=== PATIENT | female | born 1960 | race Caucasian/White ===

== ENCOUNTER 2018-05-16 05:55 | Inpatient (IN) | payer OTHER ==
--- NOTE | 2018-05-14 01:17 | PREOPHP ---
DATE OF ADMISSION: 05/16/2018 HISTORY OF PRESENT ILLNESS: This is a 57-year-old female 2, para 2 with 2 spontaneous vagina l deliveries. Patient with a last period in 2009 and history of pelvic pain and pelvic pressure. Th e patient loses urine with Valsalva maneuver. She loses urine during sex and she wears a pad on a da keiko basis due to loss of continence every time she does any Valsalva maneuver. She has no urinary pa in. She has normal bowel movement with constipation. Family history is for colon cancer. The patie nt had history of a hemorrhoidectomy in 2004. She had spinal headaches after she agreed to do some e xperimental studies. The patient has a strong family history of colon cancer. REVIEW OF SYSTEMS: Otherwise, she has no problems with her heart. No lung disease, no GI disease, n o endocrine disease. No neurological disease, orthopedic disease. SOCIAL HISTORY: The patient does not drink or smoke and no history of drugs. FAMILY HISTORY: Heart attacks and colon cancer. PHYSICAL EXAMINATION: GENERAL APPEARANCE: Good. VITAL SIGNS: The blood pressure is 140/70, pulse 80, respirations 16. She is 5'1". She weighs 126. HEAD AND NECK: Normal. BREASTS: Soft, nontender, no masses. CHEST: Clear. HEART: Normal sinus rhythm. LUNGS: Clear. ABDOMEN: Soft, nontender, no masses. GENITALIA: With cystourethrocele, grade III-IV, prolapse, grade III of the rectum, cervical oblitera tion and a prolapse of the uterus, grade III. There is vaginal atrophy as well. The uterus is yeyo l size. DIAGNOSES: 1. Complete uterovaginal prolapse. 2. Mixed incontinence. 3. Constipation. 4. Borderline hypertension. 5. Family history of colon cancer. 6. Cervical obliteration. PLAN: She has been advised of a vaginal total hysterectomy with anterior and posterior colporrhaphy with a sling and a graft. She has been placed on estrogen vaginal cream due to the vaginal atrophy. She has been advised of the possible risks and possible complications of the procedure with her alte rnatives and options. Written information was provided. She had no more questions and agreed to go ahead with the procedure with full understanding and no more questions. Instructions and advice were given about placing a sling versus not placing a sling. She knows the recurrence rate with the slin g is less frequent and she would like to take the risk of the sling having other possible complicatio ns of frequent infections or protrusion to other organs. She would rather take that chance versus suellen dominguez to have the procedure recur again. She understood everything. She had all her questions answer ed and she agreed to go ahead with the procedure with full understanding and no more questions. Dictated By: MARSHA VELÁSQUEZ/JULIO CESAR Conf#: [id number] DID#: [id number]
[~2018-05-16] VITALS: Ht 154.9 cm; Wt 56.7 kg
[2018-05-16] VITALS (28 sets, daily range): BP systolic 82–120; BP diastolic 43–67; PULSE 53–98; RESP 10–39; Ht 154.9 cm; Wt 56.7 kg
[~2018-05-16 05:55] MED LIST: HEMOSTATIC MATRIX SYG ZFS ONE; THROMBIN 5000 UNIT VIAL TOP ONE
[2018-05-16] MEDS ORDERED: CEFAZOLIN 1 GM INJ ONE (07:00)
[2018-05-16] MEDS ORDERED: DESFLURANE 15 MIN ONE (07:00)
[2018-05-16] MEDS ORDERED: BUPIVACAINE 0.5%/EPI (SDV) 30 ML INJ ONE ×2 (07:07→09:22)
[2018-05-16] MEDS ORDERED: BUPIVACAINE 0.25% (MPF) 30 ML INJ ONE (07:07)
[2018-05-16] MEDS ORDERED: THROMBIN (BOVINE) 5,000 UNIT VIAL TP ONE (07:08)
[2018-05-16] MEDS ORDERED: POLYMYXIN/BACITRACIN 1L IRRIG ONE (07:08)
[2018-05-16] MEDS ORDERED: ONDANSETRON 4 MG INJ IV PRN ×2 (07:30→12:00)
[2018-05-16] MEDS ORDERED: HYDROmorphONE 1 MG/5 ML IV SYRINGE IV PRN ×6 (07:30→12:00)
[2018-05-16] MEDS ORDERED: MEPERIDINE 25 MG INJ IV PRN ×2 (07:30→12:00)
[2018-05-16] MEDS ORDERED: hydrALAzine 20 MG INJ IV PRN ×2 (07:30→12:00)
[2018-05-16] MEDS ORDERED: LABETALOL HCL 20MG INJ IV PRN ×2 (07:30→12:00)
[2018-05-16] MEDS ORDERED: DIPHENHYDRAMINE 50 MG INJ IV PRN ×2 (07:30→12:00)
--- NOTE | 2018-05-16 07:30 | PREAC ---
Date/Time of Note Date/Time of Note DATE: 05/16/18 TIME: 07:28 Anesthesia Eval and Record Evaluation Time Pre-Procedure Interview DATE: 05/16/18 TIME: 07:28 Age 57 Sex female NPO: 8 hrs Preoperative diagnosis complete uterovaginal prolapse Planned procedure vaginal hysterectomy Past Medical History Past Medical History: None Surgery & Anesthesia Issues No known issue Meds Anticoagulation: No Beta Adiel within 24 hr: No Reason Beta Adiel not given: Pt. not on B-Adiel No Active Prescriptions or Reported Meds Meds reviewed: Yes Allergies Coded Allergies: No Known Allergy (Unverified , 05/16/18) Allergies Reviewed: Yes Labs/Studies Labs Reviewed: Reviewed by anesthesiologist test: N/A Studies: ECG (sr), CXR (nl) Pre-procedure Exam Last vitals Vital Signs Date Temp Pulse Resp B/P (MAP) Pulse Ox O2 O2 Flow FiO2 Time Delivery Rate 05/16/18 98.0 72 18 112/43 96 Room Air 06:42 (66) Airway: Adequate mouth opening Mallampati: Mallampati I Teeth: Normal Lung: Normal Heart: Normal ASA Physical Status ASA physical status: 1 Emergency: None Planned Anesthetic General/MAC: LMA Neuraxial: Spinal Planned Pain Management Sub-arachniod narcotics Pre-operative Attestations Prior to commencing anesthesia and surgery, the patient was re-evaluated, there was verification of: *The patient's identity *The results of appropriate recent lab work and preoperative vital signs *The above evaluation not changing prior to induction *Anesthetic plan, risk benefits, alternative and complications discussed with patient/family; questions answered; patient/family understands, accepts and wishes to proceed. VICKY MIMS MD May 16, 2018 07:30
--- NOTE | 2018-05-16 07:43 | HPN ---
Date/Time of Note Date/Time of Note DATE: 05/16/18 TIME: 07:43 Interval H&P Admission Note Pt. seen H&P reviewed: No system changes MARSHA SANTILLAN MD May 16, 2018 07:43
[2018-05-16] MEDS ORDERED: PROPOFOL 20 ML ONE (07:44)
[2018-05-16] MEDS ORDERED: MIDAZOLAM 1 MG/ML 2 ML INJ ONE (07:45)
[2018-05-16] MEDS ORDERED: FENTAnyl 50 MCG/ML VIAL ONE (07:45)
[2018-05-16] MEDS ORDERED: METOCLOPRAMIDE 10 MG INJ ONE ×2 (07:45→11:50)
[2018-05-16] MEDS ORDERED: morphine SULFATE/PF (10 MG/10 ML) INJ ONE (07:45)
[2018-05-16] MEDS ORDERED: ONDANSETRON 4 MG INJ ONE ×2 (07:45→11:27)
[2018-05-16] MEDS ORDERED: DEXAMETHASONE 4 MG/ML 5 ML INJ ONE (08:17)
[2018-05-16] MEDS ORDERED: EPHEDrine 25 MG/5 ML SYG ONE (08:22)
[2018-05-16] MEDS ORDERED: THROMBIN 5000 UNIT VIAL TOP ONE (08:47)
--- NOTE | 2018-05-16 11:29 | SIPON ---
Date/Time of Note Date/Time of Note DATE: 05/16/18 TIME: 11:22 Operative Report Preoperative Diagnosis Complete uterovaginal prolapse with urinary stress incontinence Mixed incontinence Constipation Cystourethrocele grade 4 and borderline hypertension rectocele grade 4 Pelvic pain Postoperative Diagnosis Same Operation/Procedure Performed Vaginal total hysterectomy and bilateral salpingectomy Anterior and posterior colporrhaphy OBtryx sling, Acell graft and Xenform graft Surgeon see signature line medical lab assistant Dr Martinez Anesthesia: general Estimated blood loss: 100 - 150 ml's Transfusion Required none Specimen Uterus cervix bilateral tubes and vaginal mucosa Grafts/Implants none Complications none MARSHA SANTILLAN MD May 16, 2018 11:29
[2018-05-16] MEDS ORDERED: ZOLPIDEM 5 MG TAB PO PRN (11:30)
[2018-05-16] MEDS ORDERED: ONDANSETRON INJ 6 MG in DEXTROSE 5% 50 ML IVPB PRN (11:30)
[2018-05-16] MEDS ORDERED: DIPHENHYDRAMINE 50 MG CAP PO PRN (11:30)
[2018-05-16] MEDS ORDERED: HYDROCODONE/APAP (5/325) TAB PO PRN ×2 (11:30)
[2018-05-16] MEDS: METOCLOPRAMIDE 10 MG TAB PO SCH ×3 (12:00→23:47)
[2018-05-16] MEDS: KETOROLAC 30 MG INJ IV SCH ×3 (12:06→23:48)
[2018-05-16] MEDS: LACTATED RINGER'S 1,000 ML IV SCH ×2 (12:23→21:38)
[2018-05-16] MEDS ORDERED: METOCLOPRAMIDE 10 MG INJ IV ONE (12:30)
--- NOTE | 2018-05-16 13:09 | OPR ---
DATE OF OPERATION: PREOPERATIVE DIAGNOSES: 1. Complete uterovaginal prolapse. 2. Urinary stress mixed incontinence. 3. Constipation. 4. Cystourethrocele, rectocele grade 4. 5. Borderline hypertension. 6. Pelvic pain. POSTOPERATIVE DIAGNOSES: 1. Complete uterovaginal prolapse. 2. Urinary stress mixed incontinence. 3. Constipation. 4. Cystourethrocele, rectocele grade 4. 5. Borderline hypertension. 6. Pelvic pain. SURGEON: Marsha Tena MD NURSE INTERN: Earnest Martinez MD ANESTHESIOLOGIST: Estephania Randolph MD ANESTHESIA: General anesthesia and Duramorph. COMPLICATIONS: None. OPERATIONS PERFORMED: Vaginal total hysterectomy, bilateral salpingectomy, anterior and posterior co lporrhaphy, Obtryx sling, ACell graft and Xenform graft. DESCRIPTION OF PROCEDURE: The patient was given Duramorph and general anesthesia, placed in the supi ne position in lithotomy position. The perineal and vaginal area was prepped and draped. Confirmato ry examination under anesthesia revealed that the cervix was at the introitus with the bladder and th e rectum with a complete uterovaginal prolapse. Vaginal speculum was applied. The cervix was held a nd Marcaine solution with epinephrine 0.5% was given around the cervix and cervicovaginal junction in cision was made around the whole cervix. The anterior cul-de-sac was found then the posterior cul-de -sac was found. The cardinal ligaments and uterosacral ligaments were burned and cut with the LigDataCoupu re instrument levels. The uterine vessels were also burned and cut with the LigaSure instrumen t and the uterus was inverted and with 1 clamp, the adnexal pedicle was cut and on each side and the uterus was removed. The adnexal pedicles were tied with #1 Vicryl continuous suture into the Pham clamp and these sutures were held and hemostasis was good. At this time, the posterior vaginal mucos a started bleeding slightly, so we put interrupted sutures all around the bottom half of the vaginal rim. The cardinal ligaments were held with the stitches in both sides. At this time, the tubes were removed with the LigaSure instrument clamping the mesosalpinx and this was done in both sides. Both ovaries were very atrophic and small and normal. The peritonealization was done with a pursestring suture with an 0 Vicryl and now, the vagina was closed by tying the infundibulopelvic ligament to ips ilateral side along with the cardinal ligaments to ipsilateral side and these sutures were brought up to the top of the vagina with a free needle and the sutures were tied at 12 o'clock and 6 o'clock an d a good lift of the vaginal cuff was observed. The rest of the vagina was closed with interrupted s utures with #2-0 Vicryl vertically. At this time, the Collins catheter was placed in. The urine was c lear. The midline incision was made after injection of Xylocaine and epinephrine to the area of the fascia that around the bladder, the bladder from the anterior vaginal mucosa. The bladder was dissected up and it was imbricated with 2-0 Vicryl sutures and lifted. The dissection was done that was carried in both sides up to the obturator internal muscle in both sides. At this time, the location for the Obtryx needle was localized putting the finger below the adductor longus tendon and 2 cm below that parallel to the clitoris, a beatriz was done at the level of the obturator membrane. Th e needles were passed through the obturator perforating the membrane and retrieving the needle paraur ethrally where the arms of the sling were attached to the needle in both sides and the arms were pass ed up after removing the needles from the obturator canal. The arms of the sling were placed on the obturator canal and the sling was adjusted after a piece of ACell and Xenform graft was placed on the mid urethral area before the sling was approximated to the bladder. The sling was approximated to t he graft and they are both grabbed and the arms were cut at the level of the skin and the entrance of the needle was covered with Dermabond. A piece of Xenform was placed on the other side of the sling and this was fixed and a small trimming of the vagina was done since the vagina was outside with inf lammation from being outside the patient's body. A small trimming of the vagina was done at that lev el from the vaginal cuff. The vagina was closed vertically without complications. The anterior colp orrhaphy was finished. The stitches were done interruptedly layer with 2-0 Vicryl. Then the posteri or colporrhaphy was started by making triangular incision at the perineum and injection was given wit h the same Marcaine and epinephrine the rectocele from the posterior vaginal mucosa all th e way almost up the vaginal cuff. A midline incision was made and the rectocele was and im bricated with #2-0 Vicryl and the rectocele was taking care of that way. The remnant of vaginal muco sa was trimmed and the vagina was closed with a vertical incision with interrupted sutures with 2-0 V icryl. At the level of the perineum, the levator ani was tucked from one side to the other side with a #1 Vicryl lifting the perineum very well. The perineum was closed with 2-0 Vicryl and 3-0 Vicryl and the patient tolerated the procedure well. At this time, Xeroform gauze was left in the vagina to approximate the tissues back together and the urine was clear at the end of the procedure. The spon ge counts, instrument counts, needle counts were correct and intravenous antibiotics were given for p rophylaxis. The patient left the OR awake and stable. Dictated By: MARSHA VELÁSQUEZ/JULIO CESAR Conf#: [id number] DID#: [id number]
[2018-05-16] MEDS: CEFAZOLIN 1 GM/50 ML (PMX) 50 ML IVPB SCH ×2 (15:43→21:38)
--- NOTE | 2018-05-16 16:45 | PAC ---
Date/Time of Note Date/Time of Note DATE: 05/16/18 TIME: 16:44 Post-Anesthesia Notes Post-Anesthesia Note Last documented vital signs Vital Signs Date Temp Pulse Resp B/P (MAP) Pulse Ox O2 O2 Flow FiO2 Time Delivery Rate 05/16/18 97.9 54 20 110/54 2 Nasal 15:45 (72) Cannula 05/16/18 2.0 12:03 Activity: WNL Respiratory function: WNL Cardiovascular function: WNL Mental status: Baseline Pain reasonably controlled: Yes Hydration appropriate: Yes Nausea/Vomiting absent: No VICKY MIMS MD May 16, 2018 16:45
[2018-05-17 00:24] VITALS: BP 101/50; PULSE 57; RESP 18
[2018-05-17] MEDS: LACTATED RINGER'S 1,000 ML IV SCH ×2 (03:12→11:58)
[2018-05-17] MEDS: METOCLOPRAMIDE 10 MG TAB PO SCH ×3 (05:44→18:30)
[2018-05-17] MEDS: CEFAZOLIN 1 GM/50 ML (PMX) 50 ML IVPB SCH (05:44)
[2018-05-17] MEDS: KETOROLAC 30 MG INJ IV SCH ×3 (05:45→18:30)
[2018-05-17 07:59] VITALS: BP 85/49; PULSE 64; RESP 16
[2018-05-17] MEDS ORDERED: SOD CHLORIDE 0.9% 250 ML IV ONE (09:30)
[2018-05-17 10:45] VITALS: BP 95/51; PULSE 62; RESP 18
--- NOTE | 2018-05-17 12:13 | PN ---
Date/Time of Note Date/Time of Note DATE: 05/17/18 TIME: 12:11 Assessment/Plan Lines/Catheters IV Catheter Type (from Nrsg): Peripheral IV Collins in Place (from Nrsg): Yes Subjective 24 Hr Interval Summary Day 1 post vaginal hysterectomy A&P repair and sling Afebrile feeling good. Not in pain Toradol works very good for her Patient was explained about the surgical findings and procedure and she is very grateful She is advised for ambulation today Her vaginal packing just came off and we will start bladder training Constitutional: no complaints Feeding: advancing diet Pain Control: mild Detailed Summary Eyes: no complaints ENT: no complaints Respiratory: no complaints Cardiovascular: no complaints Gastrointestinal: no complaints Genitourinary: no complaints Musculoskeletal: no complaints Skin: no complaints Neurologic: no complaints Endocrine: no complaints Lymphatic: no complaints Psychological: no complaints, nl mood/affect Immunologic: no complaints Exam/Review of Systems Vital Signs Vitals Vital Signs Date Temp Pulse Resp B/P (MAP) Pulse Ox O2 O2 Flow FiO2 Time Delivery Rate 05/17/18 62 18 95/51 (66) 96 Room Air 10:45 05/17/18 97.7 07:59 05/16/18 2.0 13:00 Intake and Output 05/16/18 05/16/18 05/17/18 1515:00 23:00 07:00 IntakeIntake Total 1300 ml 950 ml OutputOutput Total 600 ml 450 ml BalanceBalance 700 ml 500 ml Exam Constitutional: alert, oriented, well developed Psych: no complaints, nl mood/affect Head: normocephalic, atraumatic Eyes: nl conjunctiva, EOMI, nl lids, nl sclera ENMT: nl external ears & nose, nl lips & teeth, nl nasal mucosa & septum, mucosa pink and moist Neck: supple, non-tender Respiratory: clear to auscultation, normal air movement Cardiovascular: regular rate and rhythm, nl pulses Gastrointestinal: soft, nl liver, spleen, non-tender Musculoskeletal: nl extremities to inspection, nl gait and stance Extremities: normal pulses 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
--- NOTE | 2018-05-17 13:36 | OPPN ---
Date/Time of Note Date/Time of Note DATE: 05/17/18 TIME: 13:35 Anesthesia Follow up Anesthesia Follow up Last documented vital signs Vital Signs Date Temp Pulse Resp B/P (MAP) Pulse Ox O2 O2 Flow FiO2 Time Delivery Rate 05/17/18 62 18 95/51 (66) 96 Room Air 10:45 05/17/18 97.7 07:59 05/16/18 2.0 13:00 Respiratory function: WNL Cardiovascular function: WNL Comments A 57 YEAR FEMALE S/P ga SPINAL, DURAMORPH pod #1 IS DOING FINE. nO PAIN, n/v, ITCHING, HEADACHE, SENSDORY DEFICIT. VCIKY MIMS MD May 17, 2018 13:36
[2018-05-17 16:00] VITALS: BP 100/58; RESP 18
[2018-05-17 20:00] VITALS: BP 98/50; PULSE 77; RESP 18
[2018-05-18] MEDS: METOCLOPRAMIDE 10 MG TAB PO SCH ×3 (00:22→14:38)
[2018-05-18] MEDS: KETOROLAC 30 MG INJ IV SCH ×3 (00:24→14:38)
[2018-05-18 02:00] VITALS: BP 93/44; PULSE 62; RESP 18
[2018-05-18 07:18] VITALS: BP 101/58; PULSE 72; RESP 19
--- NOTE | 2018-05-18 13:14 | PD.PPDC ---
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
--- NOTE | 2018-05-18 13:20 | DS ---
Date/Time of Note Date/Time of Note DATE: 05/18/18 TIME: : Discharge Summary Admission/Discharge Info Admit Date/Time May 16, 2018 at 05:55 Discharge Date/Time May 18, 2018 Discharge Diagnosis Complete uterovaginal prolapse Mixed incontinence Constipation Patient Condition: Good Hospital Course Patient was admitted for a grade 4 pelvic prolapse uterovaginal prolapse complete with mixed incontinence and constipation. she underwent a vaginal hysterectomy A&P repair and sling. She did well after surgery She was in moderate pain but she was ambulatory trying to get better Finally she was able to perform her activities without IV medications. She had been afebrile and her laboratory testing was near normal. She had no symptoms of anemia. She was tolerating diet passing gases with final bowel movement on her second postop day. She was discharged with instructions of what to do not to do was to see me in the office in a week. Stable and in good conditions. She was provided with pain medication and further instructions of how to take care of herself. Red flags for emergency situation were explained to her and instructions of what to do about it Home Meds No Active Prescriptions or Reported Meds Primary Care Provider Not On Staff Doctor MARSHA SANTILLAN MD May 18, 2018 13:20
--- NOTE | 2018-05-18 13:29 | DS ---
Date/Time of Note Date/Time of Note DATE: 05/18/18 TIME: 13:21 Discharge Summary Admission/Discharge Info Admit Date/Time May 16, 2018 at 05:55 Discharge Date/Time May 18, 2018 Discharge Diagnosis Complete uterovaginal prolapse Mixed incontinence Constipation Patient Condition: Good Procedures Vaginal total hysterectomy bilateral salpingectomy anterior and posterior repair Suburethral sling and graft Hx of Present Illness 57 years old female multigravida who had been suffering from pelvic pressure a severe pelvic prolapse grade 4 The patient was having mixed incontinence with inability to void and also with loss of urine upon Valsalva maneuvers and urgency. severe constipation due to rectocele. The patient was advised for a vaginal total reconstruction with sling and graft Hospital Course Patient did very well after surgery and she was afebrile she was ambulatory and she was with pain controlled with pain medications IV first and then p.o.. She has been tolerating diet and she is passing gases with her abdomen that is very benign on examination. Her packing had been removed and her bladder scan had consistently show that she is retaining urine for which she is going to have a Collins catheter reapplied and she will have it removed in the office in a week. She will be sent home on Tylenol No. 3 as needed on ibuprofen as needed Cipro 1 twice daily for 10 days for prophylaxis fluconazole for prophylaxis and omeprazole for prophylaxis of gastritis She is stable in good conditions to go home in very good mood. Her CBC shows anemia but she is usually anemic so she has no symptoms. She is advised to high protein diet and to take vitamins as well She will be seen in the office in a week or earlier if she had any problems she was given instructions of what to do and not to do at home and see me for the catheter removal if she has any problem earlier than a week she knows how to contact me Home Meds No Active Prescriptions or Reported Meds Primary Care Provider Not On Staff Doctor Time spent on discharge: < 30 minutes MARSHA SANTILLAN MD May 18, 2018 13:29
[2018-05-18 14:26] VITALS: BP 111/62; PULSE 64; RESP 18
== END 2018-05-18 15:15 | disposition home or self-care (01) | DRG 743 ==
LOC: REC 05:55 → MS1 12:52
PROVIDERS: ADMIT Obstetrics & Gynecology; ATTEND Obstetrics & Gynecology
PROC: 0UT77ZZ Resection of Bilateral Fallopian Tubes, Via Natural or Artificial Opening (ICD-10-PCS; 2018-05-16)
PROC: 0JUC07Z Supplement of Pelvic Region Subcutaneous Tissue and Fascia with Autologous Tissue Substitute, Open Approach (ICD-10-PCS; 2018-05-16)
PROC: 0JQC0ZZ Repair Pelvic Region Subcutaneous Tissue and Fascia, Open Approach (ICD-10-PCS; 2018-05-16)
PROC: 0TSD0ZZ Reposition Urethra, Open Approach (ICD-10-PCS; 2018-05-16)
PROC: 0UT97ZZ Resection of Uterus, Via Natural or Artificial Opening (ICD-10-PCS; principal; 2018-05-16 07:30)
DX: N81.3 Complete uterovaginal prolapse (principal); N39.46 Mixed incontinence; K59.00 Constipation, unspecified; R03.0 Elevated blood-pressure reading, without diagnosis of hypertension; Z80.0 Family history of malignant neoplasm of digestive organs
CPT/HCPCS: 71045; 80051; 82565; 84520; 85025; 86850; 86900; 86901; 87086; 88305; A4310; C1771; C1781; J0690; J1100; J1200; J1885; J2250; J2274; J2405; J2765; J3010; J7040; J7120; Q4166